=== PATIENT | female | born 1930 | race Caucasian/White ===

== ENCOUNTER 2021-09-20 07:52 | Outpatient (CLI) | payer MEDICARE, OTHER | END 2021-09-20 07:53 | disposition home or self-care (01) | LOC: TBSIIMAG 07:52 | PROVIDERS: ATTEND Nurse Anesthetist, Certified Registered | DX: S32.10XA Unspecified fracture of sacrum, initial encounter for closed fracture (principal); S32.000A Wedge compression fracture of unspecified lumbar vertebra, initial encounter for closed fracture; R60.0 Localized edema; M16.0 Bilateral primary osteoarthritis of hip; M47.816 Spondylosis without myelopathy or radiculopathy, lumbar region; M48.061 Spinal stenosis, lumbar region without neurogenic claudication; M47.817 Spondylosis without myelopathy or radiculopathy, lumbosacral region; M48.07 Spinal stenosis, lumbosacral region | CPT/HCPCS: 72148; 72195 ==

== ENCOUNTER 2022-05-01 11:34 | Emergency (ER) | payer MEDICARE, OTHER ==
[~2022-05-01 11:34] MED LIST: GASTROGRAFIN 30 ML BOT ONE; Iopamidol-370 76% 500 ML 1 ML ONE
[2022-05-01 12:43] LABS: #Basophils 0.1 thou/uL (0.0-0.2); #Eosinphils 0.1 thou/uL (0.0-0.7); #Lymphocytes 1.1 thou/uL (1.20-3.40); #Monocytes 0.6 thou/uL (0.11-0.59); #Neutrophils 5.5 thou/uL (1.40-6.50); %Eosinophils 1.8 % (0.0-10.0); %Lymphocytes 14.9 % (21.0-51.0); %Monocytes 8.3 % (0.0-10.0); %Neutrophils 74.1 % (42.0-75.0); Hemoglobin 13.1 g/dL (12.0-16.0); Mean Corpuscular HGB CONC 32.5 g/dL (32.0-36.0); Mean Corpuscular Hemoglobin 31.9 pg (27.0-31.0); Mean Corpuscular Volume 98.2 fl (78.0-98.0); Mean Platelet Volume 7.1 fL (7.4-10.4); Platelet Count 138 10x3/uL (130-400); RBC Distribution Width 12.7 % (11.5-14.5); Red Blood Cell (RBC) Count 4.11 mill/uL (4.20-5.40); White Blood Cell (WBC) Count 7.4 10x3/uL (4.8-10.8)
[2022-05-01 13:13] LABS: ALT (SGPT) 32 U/L (8-55); AST (SGOT) 27 U/L (5-34); Albumin 3.8 g/dL (3.4-4.8); Alkaline Phosphatase 85 U/L (40-110); Anion Gap 12 mmol/L (10-20); BUN (Urea Nitrogen) 19 mg/dL (9.8-20.1); Bilirubin, Total 0.5 mg/dL (0.2-1.2); Calc. Creatinine Clearance 0 mL/min (70-130); Calcium 9.2 mg/dL (7.8-10.44); Carbon Dioxide 27 mmol/L (23-31); Chloride 100 mmol/L (98-107); Estimated GFR 83; Globulin 2.9 g/dL (2.4-3.5); Glucose 113 mg/dL (83-110); Potassium 4.1 mmol/L (3.5-5.1); Protein, Total 6.7 g/dL (5.8-8.1); Sodium 135 mmol/L (136-145)
[2022-05-01] MEDS ORDERED: Morphine 4 MG/ML VIAL ONE (16:27)
[2022-05-01] MEDS ORDERED: Piperacillin/Tazobactam 4.5 GM VIAL ONE (16:27)
== END 2022-05-01 17:40 | disposition home or self-care (01) ==
LOC: ERS 11:34
DX: K40.31 Unilateral inguinal hernia, with obstruction, without gangrene, recurrent (principal); E78.5 Hyperlipidemia, unspecified; I10 Essential (primary) hypertension; E03.9 Hypothyroidism, unspecified; Z79.899 Other long term (current) drug therapy; Z79.82 Long term (current) use of aspirin
CPT/HCPCS: 36415; 74177; 80053; 83605; 85025; 94760; J2270; J2543; Q9963; Q9967